=== PATIENT | male | born 1965 | race Caucasian/White ===

== ENCOUNTER 2024-09-27 15:10 | Emergency (ER) | payer MEDICARE, OTHER, SELFPAY ==
[2024-09-27] VITALS (8 sets, daily range): BP systolic 95–150; BP diastolic 82–96
--- NOTE | 2024-09-27 16:18 | ED.GENMED ---
History of Present Illness
General
Chief Complaint: Dizziness
Source: patient and family (Sister)
Time Seen by Provider: 09/27/24 16:14
History of Present Illness
History of Present Illness:
59-year-old male presents emergency department after having an episode of dizziness at approximately 2 PM today where he described the room spinning which he also indicates by lifting his index finger in the air and turning it around in a circular
motion. This since resolved. He denies associated diplopia, dysarthria, difficulty swallowing, numbness, tingling, focal weakness, chest pain, shortness of breath, visual changes, fall, difficulty walking, or other complaints. His sister who is
bedside states that she thinks he has had this in the past. Patient states he had dizziness in the past, but is unclear if it was a spinning sensation. He denies recent URI or tinnitus.
Past History
Past History
ED Past Medical History: HTN, Hypercholesterolemia and Other (TBI at age 19)
ED Past Surgical History: Other (Tracheostomy/G-tube�removed)
Social History
Tobacco: Smoker
Alcohol: None
Drug: None
Personal: Single
Living: alone
Family History
Family History: Other (reviewed and non-contributory)
Phy Exam
Physical Exam
Physical Exam:
GENERAL: Alert , in no apparent distress, making jokes with me
EYE: pupils equal and reactive, no nystagmus, no photophobia, EOMI
NECK: Supple, no significant adenopathy.
ENT: o/p clr, mmm.
CARDIAC: Regular rate and rhythm .
LUNGS: Clear breath sounds bilaterally, no acute respiratory distress, no wheezes/rales/rhonchi
ABDOMEN: Soft, without focal tenderness, no r/g, no cvat
NEUROLOGICAL: Alert and oriented, no focal neuro deficits, motor 5 out of 5, sensory intact, cranial nerves II through XII intact, [id number] normal. Speech very subtly slurred which is baseline as per patient and family
SKIN: Warm and dry, skin intact.
MUSCULOSKELETAL: No edema, well perfused.
PSYCH: Normal and appropriate interaction.
Course
Orders/Labs/Results
Orders:
Orders
09/27/24 15:16
EKG [Electrocardiogram (*1)] Urgent
Reason for Study: Vertigo / Dizzy
EKG- Treatment ONCE
09/27/24 16:19
Electrocardiogram (*1) Stat
Reason for Study: Abdominal Pain
CT Head W/o Iv Contrast Urgent
Comment:
Reason For Exam: DIZZY
Cardiac Monitoring- Treatment ONCE
EKG- Treatment ONCE
09/27/24 16:49
0.9% Sodium Chloride 500 ml [Nss] 500 ml IV BOLUS
09/27/24 17:11
Urinalysis Reflex To Culture Urgent
Date Specimen was Collected: 09/27/24
Time Specimen was Collected: 16:24
09/27/24 17:45
Complete Blood Count/No Diff Urgent
Comprehensive Metabolic Panel Urgent
Abnormal Lab Results
09/27/24
17:45
MCH 31.2 H pg
(27.0-31.0)
Glucose 110 H mg/dl
(70-99)
09/27/24 17:45
09/27/24 17:45
Vital Signs
Initial and Last Documented VS:
Initial Vital Signs
Temp Pulse Resp BP Pulse Ox
98.2 F 73 16 95/82 100
09/27/24 15:13 09/27/24 15:13 09/27/24 15:13 09/27/24 15:13 09/27/24 15:13
Last Documented Vital Signs
Temp Pulse Resp BP Pulse Ox
98.2 F 50 18 130/83 97
09/27/24 15:13 09/27/24 16:09 09/27/24 16:11 09/27/24 16:09/27/24 16:19
*Pulse Oximetry
SaO2: 97
Oxygen Mode of Delivery: Room air
Update Note
Update Note:
Patient presents to the Emergency Department with ___dizziness
Number and Complexity of Problems Addressed at the Encounter
� Chronic conditions affecting care:
� Acute Exacerbation and/or Progression of Chronic Illness:
� Differential Diagnosis includes: But not limited to URI, cerumen impaction, BPPV, central vertigo, etc. etc.
Amount and/or Complexity of Data to be Reviewed and Analyzed
� I performed an independent evaluation of and my interpretation is:
EKG:
CT:No acute intracranial abnormality noted.
Stable chronic findings which can be seen in the setting of normal pressure hydrocephalus.
Xrays:
Laboratory Studies: Generally unremarkable
Other:
� Review of other/old records reveals: Patient was diagnosed with idiopathic NPH in 2021
� Clinical information was obtained by an independent historian: Sister who is bedside
� Prescriptions/Medications Considered but not given:
� Further testing considered but not performed:
Risk of Complications and/or Morbidity or Mortality of Patient Management
� Social determinants of health affecting care:
� Discussion with other providers (PCP, Hospitalists, Consultants, etc):
� Escalation of care including admission/observation vs risk of discharge considered: Patient noted to have a normal gait here. No 'red flag' findings on history or physical to suggest central cause such as vertical nystagmus,
dysarthria, dysmetria, diplopia, etc. Discussed with patient portance of follow-up and reasons return to the ER. Suspect peripheral cause.
ED Attending Note
-
Portions of this chart may have been created with voice recognition software.� Occasional wrong word or��sound alike� substitutions may have occurred due to the inherent limitations of voice recognition software.
Discharge Plan
Departure
Patient Disposition: Home (Routine Discharge)
Date of Disposition: 09/27/24
Time of Disposition: 18:30
Patient with high blood pressure during this ER visit?: Yes
Condition: Good
Discharge Problem:
Dizziness
Instructions: Dizziness, BLOOD PRESSURE
Prescriptions:
No Action
atorvastatin 20 MG tablet
20 mg PO QPM
clozapine 100 MG tablet
200 mg PO HS
benztropine 1 MG tablet
1 mg PO HS
ibuprofen 200 MG tablet
200 mg PO Q4HPRN PRN (Reason: mild knee pain)
clonidine HCl 0.1 MG tablet
0.1 mg PO HS Qty: 14 0RF
Activity Restrictions/Additional Instructions:
IF YOU DEVELOP FEVER, CHEST PAIN, TROUBLE BREATHING, RECURRENT DIZZINESS, NUMBNESS, TINGLING, WEAKNESS, DOUBLE VISION, GET WORSE OR OTHER WORRISOME SIGNS, GO TO THE ER IMMEDIATELY!
Interventions
Interventions:
*Risk Screen - Suicide Last Done: 09/27/24 16:10
*General Assessment Last Done: 09/27/24 16:10
*Neglect/Abuse Screening Last Done: 09/27/24 16:10
*ED- Fall Risk Assessment Last Done: 09/27/24 16:10
*ED COVID-19 Vaccine History Last Done: 09/27/24 16:10
ED- Neurological Assessment Last Done: 09/27/24 16:10
Discharge Date and Time
Print Language: BELARUSIAN
[2024-09-27 17:19] LABS: Urine Character Clear (Clear)
[2024-09-27] MEDS: NSS 500 IV (17:47)
[2024-09-27 17:52] LABS: Hematocrit 44.1 % (39.0-52.0); Hemoglobin 16.1 g/dL (13.0-18.0); Mean Corp Hgb Conc. 36.5 g/dL (33.0-37.0); Mean Corpuscular Volume 85.5 fL (80.0-94.0); Platelet Count 218 10^3/uL (130-400); Red Cell Dist. Width 12.2 % (11.5-14.5)
[2024-09-27 18:20] LABS: ALT (SGPT) 39 U/L (0-50); AST (SGOT) 27 U/L (17-59); Albumin 4.6 g/dl (3.5-5.0); Alkaline Phosphatase 81 U/L (38-126); Blood Urea Nitrogen 10 mg/dl (9-20); Calcium 9.5 mg/dl (8.4-10.2); Carbon Dioxide 28 mmol/L (22-30); Chloride 105 mmol/L (98-107); Glucose 110 mg/dl (70-99); Potassium 4.2 mmol/L (3.5-5.1); Sodium 140 mmol/L (135-145); Total Protein 7.2 g/dl (6.3-8.2); eGFR > 60.00
== END 2024-09-27 18:55 | disposition home or self-care (01) ==
LOC: EMR 15:10
PROVIDERS: EMERGENCY PHYSICIAN Emergency Medicine; FAMILY PHYSICIAN Internal Medicine
DX: R42 Dizziness and giddiness (principal); I10 Essential (primary) hypertension; E78.00 Pure hypercholesterolemia, unspecified; F17.200 Nicotine dependence, unspecified, uncomplicated; Z87.820 Personal history of traumatic brain injury
CPT/HCPCS: 99284; 70450; 80053; 81003; 85027; 93005